=== PATIENT | female | born 1995 ===

== ENCOUNTER 2025-02-11 13:15 | Inpatient (IN) | payer OTHER ==
[~2025-02-11] VITALS: Ht 157.5 cm; Wt 68.5 kg
[2025-02-15 12:42] VITALS: BP 154/98
[2025-02-15 13:27] LABS: PH,URINE 6.5 (5.0-8.0); URINE APPEARANCE Cloudy; URINE BILIRRUBIN Negative (NEGATIVE); URINE BLOOD Moderate; URINE COLOR Yellow; URINE GLUCOSE Negative (NEGATIVE); URINE KETONE Negative (NEGATIVE); URINE LEUKOCYTE Small; URINE NITRATE Negative
[2025-02-15 13:30] LABS: HEMATOCRIT 33.8 % (36.0-45.00); HEMOGLOBIN 11.7 g/dL (12.0-15.00); MEAN CELL VOLUME 89.1 fL (80.00-100.00); MEAN CORPUSCULAR HEMOGLOBIN 30.8 pg (27.00-32.0); MEAN CORPUSCULAR HGB CONC 34.5 g/dl (32.0-36.0); RED BLOOD COUNT 3.79 M/uL (4.00-6.00); RED CELL DISTRIBUTION WIDTH 14.3 % (11.5-14.5); URINE BACTERIA 1490.6 uL (0.0-1933); URINE RBC 13.1 uL (0.0-20.8); URINE WBC 60.4 uL (0.0-23.2)
[2025-02-15 13:57] LABS: URINE CAST 0.44 uL (0.0-1.40); URINE PROTEIN 300 (NEGATIVE)
[2025-02-15 14:02] LABS: INR < 0.93; PARTIAL THROMBOPLASTIN TIME 27.3 SECONDS (22.0-34.0); PROTHROMBIN TIME 9.9 SECONDS (9.0-11.5)
[2025-02-15 14:09] LABS: PLATELET COUNT 119 K/uL (150-450)
[2025-02-15] MEDS ORDERED: PRENATA CHEWAB1 EACH PO (14:22)
[2025-02-15] MEDS ORDERED: RINGERS SOLUTION,LACTATED 1,000 ML IV SCH (14:30)
[2025-02-15 15:24] VITALS: BP 146/89
[2025-02-15] MEDS ORDERED: LABETALOL HCL 100 MG TABLET PO ONE ×2 (16:33→18:10)
[2025-02-15 16:41] VITALS: BP 141/95
[2025-02-15] MEDS ORDERED: LABETALOL HCL 200 MG TABLET PO SCH (17:00)
[2025-02-15] MEDS ORDERED: LABETALOL HCL 100 MG TABLET PO STA (18:15)
[2025-02-15 18:18] VITALS: BP 145/82
[2025-02-15 19:19] VITALS: BP 132/87
[2025-02-15 23:29] VITALS: BP 122/77
[2025-02-16 03:08] VITALS: BP 138/82
[2025-02-16 07:22] VITALS: BP 148/72
[2025-02-16] MEDS ORDERED: OXYTOCIN 500 ML IV ONE (07:45)
[2025-02-16] MEDS ORDERED: LABETALOL HCL 200 MG TABLET PO SCH (09:00)
[2025-02-16] MEDS ORDERED: LABETALOL HCL 100 MG TABLET PO SCH (09:00)
[2025-02-16] MEDS ORDERED: MORPHINE SULFATE 4 MG/ML VIAL IV ONE (11:00)
[2025-02-16] MEDS ORDERED: OXYTOCIN 20 UNITS/1000ML RL PIGGYBAG IV ONE (11:56)
[2025-02-16] MEDS ORDERED: ERYTHROMYCIN BASE OPHT 1GM EACH TUBE OP ONE (11:56)
[2025-02-16] MEDS ORDERED: CHLORHEXIDINE GLUCONATE 120 ML BOTTLE TOP ONE (11:56)
[2025-02-16] MEDS ORDERED: LIDOCAINE HCL 1% 10ML VIAL ONE (11:56)
[2025-02-16] MEDS ORDERED: CHLORHEXIDINE GLUCONATE 120 ML BOTTLE TOP SCH (14:30)
[2025-02-16] MEDS ORDERED: OXYTOCIN 1,000 ML IV SCH (14:30)
[2025-02-16] MEDS ORDERED: IBUprofen 400 MG TABLET PO PRN (14:30)
[2025-02-16 15:43] VITALS: BP 133/85
[2025-02-16 18:20] VITALS: BP 138/80
[2025-02-17] VITALS: BP 126/86
[2025-02-17 06:01] LABS: HEMATOCRIT 25.5 % (36.0-45.00); MEAN CELL VOLUME 89.8 fL (80.00-100.00); MEAN CORPUSCULAR HGB CONC 34.6 g/dl (32.0-36.0); RED BLOOD COUNT 2.84 M/uL (4.00-6.00); RED CELL DISTRIBUTION WIDTH 14.8 % (11.5-14.5)
[2025-02-17 06:14] LABS: HEMOGLOBIN 8.8 g/dL (12.0-15.00); MEAN CORPUSCULAR HEMOGLOBIN 30.9 pg (27.00-32.0); PLATELET COUNT 104 K/uL (150-450)
[2025-02-17 08:55] VITALS: BP 139/66
[2025-02-17] MEDS ORDERED: IRON FUM,PS/FOLIC ACID/VITC/B3 1 CAP CAPSULE PO SCH (09:00)
[2025-02-17 16:17] VITALS: BP 139/69
[2025-02-17 20:44] VITALS: BP 126/80
[2025-02-18 01:00] VITALS: BP 128/66
[2025-02-18 08:00] VITALS: BP 132/84
== END 2025-02-18 12:21 | disposition home or self-care (01) | DRG 807 ==
LOC: LDR 02-15 12:32 → OB/GYN 02-16 15:34
PROVIDERS: Obstetrics & Gynecology; ADMIT Obstetrics & Gynecology Maternal & Fetal Medicine; ATTEND Obstetrics & Gynecology Maternal & Fetal Medicine
PROC: 4A1HXCZ Monitoring of Products of Conception, Cardiac Rate, External Approach (ICD-10-PCS; 2025-02-15)
PROC: 10E0XZZ Delivery of Products of Conception, External Approach (ICD-10-PCS; principal; 2025-02-16)
PROC: 0KQM0ZZ Repair Perineum Muscle, Open Approach (ICD-10-PCS; 2025-02-16)
DX: O70.1 Second degree perineal laceration during delivery (principal); Z37.0 Single live birth; Z3A.38 38 weeks gestation of pregnancy